=== PATIENT | male | born 1975 | race Caucasian/White ===

== ENCOUNTER 2017-04-19 21:49 | Emergency (ER) | payer SELFPAY ==
[2017-04-19 22:41] LABS: ABSOLUTE BASOPHILS # (AUTO) 0.1 10^3/uL (0.0-0.2); ABSOLUTE EOSINOPHILS # (AUTO) 0.2 10^3/uL (0.0-0.6); ABSOLUTE LYMPHOCYTES (AUTO) 2.8 10^3/uL (0.5-4.7); ABSOLUTE MONOCYTES (AUTO) 0.3 10^3/uL (0.1-1.4); ABSOLUTE NEUT (AUTO) 5.9 10^3/uL (1.7-8.2); BASOPHILS % (AUTO) 1.1 % (0-2); EOSINOPHILS % (AUTO) 1.8 % (0-6); HEMATOCRIT 44.6 % (37.9-51.0); HEMOGLOBIN 15.7 g/dL (13.5-17.0); LYMPHOCYTES % (AUTO) 30.2 % (13-45); MEAN CORPUSCULAR HEMOGLOBIN 32.2 pg (27.0-33.4); MEAN CORPUSCULAR HGB CONC 35.2 g/dL (32.0-36.0); MEAN CORPUSCULAR VOLUME 91 fl (80-97); MONOCYTES % (AUTO) 3.6 % (3-13); PLATELET COUNT 265 10^3/uL (150-450); RED BLOOD COUNT 4.87 10^6/uL (4.35-5.55); RED CELL DISTRIBUTION WIDTH 13.2 % (11.5-14.0); SEGMENTED NEUTROPHILS % (AUTO) 63.3 % (42-78); TOTAL CELLS COUNTED % (AUTO) 100 %; WHITE BLOOD COUNT 9.3 10^3/uL (4.0-10.5)
[2017-04-19] MEDS ORDERED: HALOPERIDOL LACTATE INJ 5 MG/1 ML VIAL ONE (22:46)
[2017-04-19] MEDS ORDERED: HALOPERIDOL LACTATE INJ 5 MG/1 ML VIAL IM ONE (22:46)
[2017-04-19] MEDS ORDERED: MIDAZOLAM 2 MG/2 ML INJ IM ONE (22:46)
[2017-04-19] MEDS ORDERED: MIDAZOLAM 2 MG/2 ML INJ ONE (22:47)
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
[2017-04-19 22:59] LABS: ALCOHOL 289 mg/dL (NONE DETECTED); ANION GAP 14 (5-19); BLOOD UREA NITROGEN 4 mg/dL (7-20); CALCIUM 9.5 mg/dL (8.4-10.2); CARBON DIOXIDE 23 mmol/L (22-30); CHLORIDE 99 mmol/L (98-107); GLUCOSE 100 mg/dL (75-110); POTASSIUM 3.9 mmol/L (3.6-5.0); SODIUM 136.3 mmol/L (137-145)
[2017-04-19 23:28] LABS: ALANINE AMINOTRANSFERASE 35 U/L (21-72); ALBUMIN 4.5 g/dL (3.5-5.0); ALKALINE PHOSPHATASE 69 U/L (38-126); ASPARTATE AMINO TRANSFERASE 22 U/L (17-59); TOTAL PROTEIN 7.1 g/dL (6.3-8.2)
[2017-04-19 23:29] LABS: ACETAMINOPHEN < 10 ug/mL (10-30); BILIRUBIN,TOTAL < 0.1 mg/dL (0.2-1.3)
[2017-04-19 23:30] LABS: SALICYLATE < 1.0 mg/dL (2.0-20.0)
[2017-04-20 00:07] LABS: APPEARANCE,URINE CLEAR; BILIRUBIN,URINE NEGATIVE (NEGATIVE); COLOR,URINE STRAW; GLUCOSE, URINE NEGATIVE (NEGATIVE); KETONES,URINE NEGATIVE (NEGATIVE); LEUKOCYTE ESTERASE,URINE NEGATIVE (NEGATIVE); NITRITE,URINE NEGATIVE (NEGATIVE); PROTEIN,URINE NEGATIVE (NEGATIVE); URINE SPECIFIC GRAVITY 1.004; UROBILINOGEN,URINE NEGATIVE mg/dL (<2.0)
--- NOTE | 2017-04-20 00:37 | RADIOLOGY REPORT (SQ) ---
EXAM DESCRIPTION: CT HEAD WITHOUT CLINICAL HISTORY: 41 years Male, new onset seizures COMPARISON: None. TECHNIQUE: No contrast. This exam was performed according to our departmental dose-optimization program, which includes automated exposure control, adjustment of the mA and/or kV according to patient size and/or use of iterative reconstruction technique. FINDINGS: No hemorrhage or infarct. No mass, mass effect, or midline shift. Brain and extra-axial structures appear intact. IMPRESSION: Normal CT of the head.
[2017-04-20 02:01] LABS: URINE AMPHETAMINES SCREEN NEGATIVE; URINE BARBITURATES SCREEN NEGATIVE; URINE BENZODIAZEPINES SCREEN NEGATIVE; URINE COCAINE SCREEN NEGATIVE; URINE MARIJUANA (THC) SCREEN NEGATIVE; URINE METHADONE SCREEN NEGATIVE; URINE PHENCYCLIDINE SCREEN NEGATIVE
--- NOTE | 2017-04-20 10:43 | ER Document Report ---
Doctor's Note Notes: 04/20/17 10:41 Chart and vital signs, labs reviewed. Labs significant for alcohol level of 289. Patient at this point feels like the alcohol is wearing off. He has no complaints but would like a cigarette. He accepts a nicotine patch at this point instead. Psychiatry is working on further evaluation/disposition. 04/20/17 11:[address] Aldrich have evaluated the patient. They do not feel he meets inpatient criteria. Patient at this point is elda for safety. They recommended Effexor 37.5 mg twice daily along with BuSpar 10 mg twice daily. He reports he already has an appointment tomorrow and psychiatry has verified outpatient follow-up.
[2017-04-20] MEDS ORDERED: NICOTINE 21 MG/24 HR PATCH.TD24 TD ONE (10:44)
[2017-04-20] MEDS ORDERED: VENLAFAXINE HCL 37.5 MG CAP.SR.24H PO ONE (11:20)
[2017-04-20] MEDS ORDERED: BUSPIRONE HCL 10 MG TABLET PO ONE (11:21)
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
[2017-04-20 16:39] VITALS: BP 108/70
== END 2017-04-20 16:45 | disposition home or self-care (01) ==
LOC: ER 21:49
DX: R45.851 Suicidal ideations (principal); R45.1 Restlessness and agitation; F10.99 Alcohol use, unspecified with unspecified alcohol-induced disorder; Y90.8 Blood alcohol level of 240 mg/100 ml or more; F43.21 Adjustment disorder with depressed mood; F43.10 Post-traumatic stress disorder, unspecified; F17.200 Nicotine dependence, unspecified, uncomplicated; R00.0 Tachycardia, unspecified
CPT/HCPCS: 99285; 96372; 36415; 80307 ×4; 85025; 80076; 80048; 81001; 70450; J2250; J3490; J1630

== ENCOUNTER 2018-03-14 02:56 | Emergency (ER) | payer SELFPAY ==
[2018-03-14] MEDS ORDERED: LIDOCAINE 1%/EPINEPHRINE INJ 20 ML VIAL INJ ONE (04:25)
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
[2018-03-14] MEDS ORDERED: HYDROCODONE/ACETAMINOPHEN 5-325 MG (6 TAB/ER DISP) PO PRN (05:54)
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
[2018-03-14 06:20] VITALS: BP 116/57
== END 2018-03-14 06:20 | disposition home or self-care (01) ==
LOC: ER 02:56
PROC: 0HQ3XZZ Repair Left Ear Skin, External Approach (ICD-10-PCS; principal; 2018-03-14)
PROC: 0HQ1XZZ Repair Face Skin, External Approach (ICD-10-PCS; 2018-03-14)
DX: S01.312A Laceration without foreign body of left ear, initial encounter (principal); S01.81XA Laceration without foreign body of other part of head, initial encounter; S01.412A Laceration without foreign body of left cheek and temporomandibular area, initial encounter; S00.83XA Contusion of other part of head, initial encounter; Y09 Assault by unspecified means; F17.200 Nicotine dependence, unspecified, uncomplicated
CPT/HCPCS: 99283; 70450; 70486; 72125; 12052; J3490

== ENCOUNTER 2019-09-14 06:30 | Emergency (ER) | payer SELFPAY ==
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
[2019-09-14] MEDS ORDERED: KETOROLAC TROMETHAMINE 60 MG/2 ML SDV IM ONE (09:29)
--- NOTE | 2019-09-14 09:29 | ER Document Report ---
HPI - HPI Time Seen by Provider: 09/14/19 09:22 Pain Level: 4 Notes: 44-year-old male presents to the emergency room for complaints of left lower back and left hip pain that woke him up out of sleep at 2 AM this morning. Patient states is been bothering him for the last week, but has been problematic "for a while". he thinks it is a form of tendinitis. Denies any form of trauma, no recent falls. 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 Patient states he does not "like going to doctors", has not had a checkup recently. States it is better with a hot shower and taking some ibuprofen and Tylenol. Denies fevers, chills, chest pain,palpitations, shortness of breath, dyspnea, nausea, vomiting, diarrhea, abdominal pain, hematuria, LH, dizziness, syncope, headaches, wheezing, ST, URI, neck pain, weakness, bowel or bladder dysfunction, saddle anesthesia, numbness or tingling in bilateral upper or lower extremities equally, muscle paralysis, weakness in bilateral upper or lower extremities equally or rash. MEDICATIONS: I agree with the patient medications as charted by the RN. ALLERGIES: I agree with the allergies as charted by the RN. PAST MEDICAL HISTORY/PAST SURGICAL HISTORY: Reviewed and agree as charted by RN. SOCIAL HISTORY: Reviewed and agree as charted by RN. FAMILY HISTORY: No significant familial comorbid conditions directly related to patient complaint EXAM: Reviewed vital signs as charted by RN. REVIEW OF SYSTEMS:reviewed vital signs by RN CONSTITUTIONAL : Denies fever, chills, or sweats. Denies recent illness. EENT: Denies eye, ear, throat, or mouth pain or symptoms. Denies nasal or sinus congestion or discharge. Denies throat, tongue, or mouth swelling or difficulty swallowing. CARDIOVASCULAR: Denies chest pain. Denies palpitations or racing or irregular heart beat. Denies ankle edema. RESPIRATORY: Denies cough, cold, or chest congestion. Denies shortness of breath, difficulty breathing, or wheezing. GASTROINTESTINAL: Denies abdominal pain or distention. Denies nausea, vomiting, or diarrhea. Denies blood in vomitus, stools, or per rectum. Denies black, tarry stools. Denies constipation. GENITOURINARY: Denies difficulty urinating, painful urination, burning, frequency, blood in urine, or discharge. MUSCULOSKELETAL: reports left lower back that radiates to his hip. Denies neck pain or stiffness. Denies joint pain or swelling. SKIN: Denies rash, lesions or sores. HEMATOLOGIC : Denies easy bruising or bleeding. LYMPHATIC: Denies swollen, enlarged glands. NEUROLOGICAL: Denies confusion or altered mental status. Denies passing out or loss of consciousness. Denies dizziness or lightheadedness. Denies headache. Denies weakness or paralysis or loss of use of either side. Denies problems with gait or speech. Denies sensory loss, numbness, or tingling. Denies seizures. PSYCHIATRIC: Denies anxiety or stress. Denies depression, suicidal ideation, or homicidal ideation. ALL OTHER SYSTEMS REVIEWED AND NEGATIVE. Dictation was performed using [employer] recognition software PHYSICAL EXAMINATION: GENERAL: Well-appearing, well-nourished and in no acute distress. HEAD: Atraumatic, normocephalic. EYES: Pupils equal round and reactive to light, extraocular movements intact, sclera anicteric, conjunctiva are normal. ENT: Nares patent, oropharynx clear without exudates. Moist mucous membranes. NECK: Normal range of motion, supple without lymphadenopathy LUNGS: Breath sounds clear to auscultation bilaterally and equal. No wheezes rales or rhonchi. HEART: Regular rate and rhythm without murmurs ABDOMEN: Soft, nontender, nondistended abdomen. No guarding, no rebound. No masses appreciated. No inguinal hernias palpated bilaterally. Musculoskeletal: Normal range of motion, no pitting or edema. No cyanosis.Pain with flexion and extension at 30 degrees on left, positive straight leg test on left. Noted pain on left hip join on palpation. pain with flexion of left hip, no pain with extension, abduction, abduction. right hip examination normal. DTR +2 in BLE equally. Strength 5 out of 5 both distally and proximally to bilateral lower extremities normal motor and sensory function in BLE equally. Distal pulses + 2 BLE equally. Noted left paraspinal tenderness near L1 and L4. Strength 5 out of 5 in bilateral lower extremities equally. no spinal tenderness. No CVA tenderness bilaterally. Femoral pulses + 2 bilaterally and equally. No abrasions, scars, lacerations, ecchymosis of any recent trauma. normal gait. NEUROLOGICAL: Cranial nerves grossly intact. Normal speech, normal gait. Normal sensory, motor exams PSYCH: Normal mood, normal affect. SKIN: Warm, Dry, normal turgor, no rashes or lesions noted. - REPRODUCTIVE Reproductive: DENIES: : Past Medical History - General Information source: Patient - Social History Smoking Status: Current Every Day Smoker Frequency of alcohol use: Heavy Drug Abuse: None Family History: Reviewed & Not Pertinent Patient has homicidal ideation: No Renal/ Medical History: Denies: Hx Peritoneal Dialysis Psychiatric Medical History: Reports: Hx Depression - Immunizations Immunizations up to date: Yes Hx Diphtheria, Pertussis, Tetanus Vaccination: Yes Vertical Provider Document - CONSTITUTIONAL Agree With Documented VS: Yes Exam Limitations: No Limitations General Appearance: WD/WN - INFECTION CONTROL TRAVEL OUTSIDE OF THE [place] IN LAST 30 DAYS: No Course - Re-evaluation Re-evalutation: 09/14/19 09:35 Afebrile vital stable no distress. Nurses notes reviewed. Left hip x-ray negative for any acute fractures, dislocation, or free air. Patient given 60 mg IM of Toradol with full relief. Discussed following up with relationship specialist and primary care provider. Apply heat 20 minutes on 20 minutes off several times a day. I have considered osteomyelitis, spinal epidural abscess, fracture, disc herniation, cord compression, cancer, AAA, retroperitoneal bleed, spinal epidural hematoma, and see no evidence to continue evaluation for these pathologies. Afebrile vital stable no distress. Nurse's notes reviewed. Pain is otherwise unremarkable for any focal neurological deficits. Patient given Toradol and Lidoderm patches. No significant tachycardia tachypnea or hypoxia. Nontoxic-appearing is tolerating p.o. without difficulty. No signs of infection. No other red flag symptoms noted. Urinalysis, CBC and CMP unremarkable. Low suspicion for meningitis fracture, expanding ruptured AAA, cauda equina syndrome, epidural mass/lesion, herniated disc causing severe spinal stenosis, systemic infection at this time. Patient is awaiting incision and change ofanemia she needs monitoring symptoms closely for any acute injuries. I will send her home with a prescription for lidocaine patches, Pt can also take kucc-[id number]-[id number] ibuprofen and Tylenol as needed for pain. Conservative measures otherwise for symptoms. Recheck with her your PCM in 3 to 5 days. Consider consult with orthopedic/ neurosurgeon. Return to the ED with any worsening concerning symptoms otherwise review discharge. Patient is in agreement with plan of care and agree with plan of care. 09/14/19 19:44 - Vital Signs Vital signs: Temp Pulse Resp BP Pulse Ox 97.5 F 86 16 146/83 H 100 09/14/19 06:38 09/14/19 06:36 09/14/19 06:36 09/14/19 06:36 09/14/19 06:36 Discharge - Discharge Clinical Impression: Lower back pain, Left hip pain Condition: Stable Disposition: HOME, SELF-CARE Instructions: Low Back Pain ([facility]), Muscle Relaxers ([facility]), Stretching Exercises for the Back ([facility]) Additional Instructions: Your x-rays today were negative of your hip and of your lower back for any acute fracture, dislocation, bone lesion. You likely have a strain of your lower back which is radiating to your hip. Please take muscle relaxers, do not drive, drink or operate machinery while taking this medication. Take naproxen as needed for pain. Apply heat 20 minutes on 20 minutes off several times a day. Please follow-up with relationship specialist as well as primary care provider. If her symptoms become worse such as worsening pain, numbness or tingling down your extremities, issues using the bathroom such as having a bowel movement or urination, numbness or tingling to your pelvic area, fevers, vomiting, chest pain or shortness of breath return to the emergency room immediately. Return immediately for any new or worsening symptoms. Follow up with primary care provider, call tomorrow to make followup appointment. Prescriptions: Naproxen 500 mg PO BID #10 tablet Methocarbamol [Robaxin 500 mg Tablet] 500 mg PO QID PRN #15 tablet PRN Reason: Referrals: HUMAIRA PADILLA MD [ACTIVE STAFF] - Follow up as needed SILVANO JEWELL MD [ACTIVE STAFF] - Follow up as needed
--- NOTE | 2019-09-14 10:14 | RADIOLOGY REPORT (SQ) ---
EXAM DESCRIPTION: L SPINE WHOLE IMAGES COMPLETED DATE/TIME: 09/14/2019 9:54 am REASON FOR STUDY: Left lower back pain, radiates to hip COMPARISON: None. NUMBER OF VIEWS: Five views including obliques. TECHNIQUE: AP, lateral, oblique, and sacral radiographic images acquired of the lumbar spine. LIMITATIONS: None. FINDINGS: MINERALIZATION: Normal. SEGMENTATION: Normal. No transitional anatomy. ALIGNMENT: Normal. VERTEBRAE: Maintained height. No fracture or worrisome bone lesion. DISCS: Mild loss of L4/5 intervertebral disc height. There may intervertebral disc heights appear to be largely preserved. POSTERIOR ELEMENTS: Pedicles and facets are intact. No pars defect or posterior arch defects. HARDWARE: None in the spine. PARASPINAL SOFT TISSUES: A series calcific densities project to the left of the L2 and L3 vertebral b odies, along the expected course of the left ureter. PELVIS: Intact as visualized. No fractures or worrisome bone lesions. SI joints intact. OTHER: No other significant finding. IMPRESSION: No evidence of acute osseous injury or significant degenerative change. Calcific densit ies projecting to the left of the L2 and L3 vertebral bodies are nonspecific but given left-sided priscilla n may represent urolithiasis. TECHNICAL DOCUMENTATION: JOB ID: [id number] 2010 [employer]- All Rights Reserved Reading location - IP/workstation name: [email or web address]
[2019-09-14 10:30] VITALS: BP 140/99
== END 2019-09-14 10:31 | disposition home or self-care (01) ==
LOC: ER 06:30
DX: M54.5 Low back pain (principal); M25.552 Pain in left hip; F32.9 Major depressive disorder, single episode, unspecified; F17.200 Nicotine dependence, unspecified, uncomplicated; Z79.899 Other long term (current) drug therapy
CPT/HCPCS: 99283; 96372; 73502; 72110; J1885

== ENCOUNTER 2019-11-30 16:55 | Inpatient (IN) | payer SELFPAY ==
--- NOTE | 2019-11-30 18:06 | ER Document Report ---
ED Medical Screen (RME) - General Chief Complaint: Headache >24 hrs old Stated Complaint: HEADACHE Time Seen by Provider: 11/30/19 17:57 Mode of Arrival: Wheelchair Information source: Patient Notes: HPI; 44-year-old male presents to the emergency room complaining of generalized headache for the past 2 weeks. Also complains of dizziness worse with movement. Also complaining of chest pain for the past 2 days. Increases with deep breath. States it is midsternal, describes it as a sharp stabbing pain. Denies any nausea, vomiting, no diaphoresis. states he has been a bit more leth argic. PE: Alert and oriented x3. Mild distress noted. Lungs: Clear to auscultation without rales, rhonchi, wheezes. Heart: Regular rate rhythm without murmurs, rubs, gallops. I have greeted and performed a rapid initial assessment of this patient. A comprehensive ED assessment and evaluation of the patient, analysis of test results and completion of the medical decision making process will be conducted by additional ED providers. I have specifically instructed the patient or family members with the patient to immediately return to any nursing staff should anything change in the patient's condition or with their chief complaint. TRAVEL OUTSIDE OF THE [place] IN LAST 30 DAYS: No - Related Data Allergies/Adverse Reactions: No Known Allergies Allergy (Verified 11/30/19 17:49) Past Medical History - Social History Chew tobacco use (# tins/day): No Frequency of alcohol use: Social Drug Abuse: None Renal/ Medical History: Denies: Hx Peritoneal Dialysis Psychiatric Medical History: Reports: Hx Depression - Immunizations Immunizations up to date: Yes Hx Diphtheria, Pertussis, Tetanus Vaccination: Yes Physical Exam - Vital signs Vitals: Temp Pulse Resp BP Pulse Ox 97.5 F 85 20 140/90 H 98 11/30/19 17:00 11/30/19 17:00 11/30/19 17:00 11/30/19 17:00 11/30/19 17:00 Course - Vital Signs Vital signs: Temp Pulse Resp BP Pulse Ox 97.5 F 85 20 140/90 H 98 11/30/19 17:00 11/30/19 17:00 11/30/19 17:00 11/30/19 17:00 11/30/19 17:00
--- NOTE | 2019-11-30 18:23 | RADIOLOGY REPORT (SQ) ---
EXAM DESCRIPTION: CHEST 2 VIEWS IMAGES COMPLETED DATE/TIME: 11/30/2019 6:14 pm REASON FOR STUDY: chest pain COMPARISON: None. EXAM PARAMETERS: NUMBER OF VIEWS: two views TECHNIQUE: Digital Frontal and Lateral radiographic views of the chest acquired. RADIATION DOSE: NA LIMITATIONS: none FINDINGS: LUNGS AND PLEURA: No opacities, masses or pneumothorax. No pleural effusion. MEDIASTINUM AND HILAR STRUCTURES: No masses or contour abnormalities. HEART AND VASCULAR STRUCTURES: Heart normal size. No evidence for failure. BONES: No acute findings. HARDWARE: None in the chest. OTHER: No other significant finding. IMPRESSION: NO ACUTE RADIOGRAPHIC FINDING IN THE CHEST. TECHNICAL DOCUMENTATION: JOB ID: [id number] 2010 [email or web address]- All Rights Reserved Reading location - IP/workstation name: [email or web address]
--- NOTE | 2019-11-30 18:24 | EKG REPORT ---
SEVERITY:- NORMAL ECG - SINUS RHYTHM : Confirmed by: Sebastian Claire MD 30-Nov-2019 18:23:41
[2019-11-30 18:48] LABS: ABSOLUTE BASOPHILS # (AUTO) 0.1 10^3/uL (0.0-0.2); ABSOLUTE EOSINOPHILS # (AUTO) 0.3 10^3/uL (0.0-0.6); ABSOLUTE MONOCYTES (AUTO) 0.4 10^3/uL (0.1-1.4); ABSOLUTE NEUT (AUTO) 4.1 10^3/uL (1.7-8.2); BASOPHILS % (AUTO) 1.2 % (0-2); EOSINOPHILS % (AUTO) 3.7 % (0-6); HEMATOCRIT 44.9 % (37.9-51.0); HEMOGLOBIN 15.9 g/dL (13.5-17.0); MEAN CORPUSCULAR HEMOGLOBIN 32.8 pg (27.0-33.4); MEAN CORPUSCULAR HGB CONC 35.4 g/dL (32.0-36.0); MEAN CORPUSCULAR VOLUME 93 fl (80-97); MONOCYTES % (AUTO) 5.1 % (3-13); PLATELET COUNT 273 10^3/uL (150-450); RED BLOOD COUNT 4.85 10^6/uL (4.35-5.55); RED CELL DISTRIBUTION WIDTH 12.9 % (11.5-14.0); TOTAL CELLS COUNTED % (AUTO) 100 %
[2019-11-30 18:52] LABS: APPEARANCE,URINE CLEAR; BILIRUBIN,URINE NEGATIVE (NEGATIVE); COLOR,URINE STRAW; GLUCOSE, URINE NEGATIVE (NEGATIVE); KETONES,URINE NEGATIVE (NEGATIVE); LEUKOCYTE ESTERASE,URINE NEGATIVE (NEGATIVE); NITRITE,URINE NEGATIVE (NEGATIVE); PROTEIN,URINE NEGATIVE (NEGATIVE); URINE SPECIFIC GRAVITY 1.003; UROBILINOGEN,URINE NEGATIVE mg/dL (<2.0)
[2019-11-30 18:56] LABS: INTERNATIONAL RATION (INR) 0.87
--- NOTE | 2019-11-30 19:02 | RADIOLOGY REPORT (SQ) ---
EXAM DESCRIPTION: CT HEAD WITHOUT IMAGES COMPLETED DATE/TIME: 11/30/2019 5:29 pm REASON FOR STUDY: headache COMPARISON: None. TECHNIQUE: Axial images acquired through the brain without intravenous contrast. Images reviewed wi th bone, brain and subdural windows. Additional sagittal and coronal reconstructions were generated. Images stored on PACS. All CT scanners at this facility use dose modulation, iterative reconstruction, and/or weight based d osing when appropriate to reduce radiation dose to as low as reasonably achievable (ALARA). [facility]: Dose Right [facility]: CareDose [facility]: Dose Right [facility]: Teradose 4D [facility]: [place] RADIATION DOSE: CT Rad equipment meets quality standard of care and radiation dose reduction techniq ues were employed. CTDIvol: 53.2 mGy. DLP: 1044 mGy-cm. mGy. LIMITATIONS: None. FINDINGS: VENTRICLES: Normal size and contour. CEREBRUM: No masses. No hemorrhage. No midline shift. No evidence for acute infarction. Normal gra y/white matter differentiation. No areas of low density in the white matter. CEREBELLUM: No masses. No hemorrhage. No alteration of density. No evidence for acute infarction. EXTRAAXIAL SPACES: No fluid collections. No masses. ORBITS AND GLOBE: No intra- or extraconal masses. Normal contour of globe without masses. CALVARIUM: No fracture. PARANASAL SINUSES: No fluid or mucosal thickening. SOFT TISSUES: No mass or hematoma. OTHER: No other significant finding. IMPRESSION: NO ACUTE INTRACRANIAL IMAGING FINDINGS. EVIDENCE OF ACUTE STROKE: NO. COMMENT: Quality ID # [id number]: Final reports with documentation of one or more dose reduction techniques (e.g., Automated exposure control, adjustment of the mA and/or kV according to patient size, use of iterative reconstruction technique) TECHNICAL DOCUMENTATION: JOB ID: [id number] [employer]- All Rights Reserved Reading location - IP/workstation name: [email or web address]
[2019-11-30 19:07] LABS: ALBUMIN 4.8 g/dL (3.5-5.0); ALKALINE PHOSPHATASE 85 U/L (38-126); ANION GAP 9 (5-19); ASPARTATE AMINO TRANSFERASE 21 U/L (17-59); BILIRUBIN,DIRECT 0.3 mg/dL (0.0-0.4); BILIRUBIN,TOTAL 0.5 mg/dL (0.2-1.3); BLOOD UREA NITROGEN 8 mg/dL (7-20); CALCIUM 9.4 mg/dL (8.4-10.2); CARBON DIOXIDE 27 mmol/L (22-30); CHLORIDE 99 mmol/L (98-107); CREATINE KINASE 56 U/L (55-170); GLUCOSE 88 mg/dL (75-110); POTASSIUM 4.3 mmol/L (3.6-5.0); TOTAL PROTEIN 7.8 g/dL (6.3-8.2)
[2019-11-30 19:09] LABS: URINE AMPHETAMINES SCREEN NEGATIVE; URINE BARBITURATES SCREEN NEGATIVE; URINE BENZODIAZEPINES SCREEN NEGATIVE; URINE COCAINE SCREEN NEGATIVE; URINE MARIJUANA (THC) SCREEN NEGATIVE; URINE METHADONE SCREEN NEGATIVE; URINE PHENCYCLIDINE SCREEN NEGATIVE
[2019-11-30 19:17] LABS: CREATINE KINASE MB 0.67 ng/mL (<4.55)
[2019-11-30 19:26] LABS: TROPONIN I 0.066 ng/mL
--- NOTE | 2019-11-30 19:28 | ER Document Report ---
ED General - General Chief Complaint: Headache >24 hrs old Stated Complaint: HEADACHE Time Seen by Provider: 11/30/19 17:57 Mode of Arrival: Wheelchair TRAVEL OUTSIDE OF THE [place] IN LAST 30 DAYS: No - HPI Notes: 44-year-old male presents with headache and chest pain. Patient states he is feeling "like a Friday". He states that he has been having generalized headaches for the past couple of weeks. He has not tried any medication at home. Pain is intermittent throughout the day. He additionally states that he woke up at 3 AM this morning with chest pain. He describes it as his left lung is hurting. Pain is worse when taking a deep breath. It is sharp and stabbing. It has been constant since its onset. Pain did not change with exertion. He was able to go to work today despite the chest pain. No nausea, vomiting or diaphoresis. He reports chronic cough and shortness of breath secondary to COPD, current every day smoker. Denies fever or any known COVID contacts. Denies any previous cardiac history. States that he has a family history of heart attack and stroke. He has not been diagnosed with hypertension, though he states he suspects he has it, he has been taking his blood pressure at home and has had readings in the 180s. He takes prazosin for sleep, prescribed by the [place]. - Related Data Allergies/Adverse Reactions: No Known Allergies Allergy (Verified 11/30/19 17:49) Past Medical History - General Information source: Patient - Social History Smoking Status: Current Every Day Smoker Chew tobacco use (# tins/day): No Frequency of alcohol use: Social Drug Abuse: None Family History: CAD Patient has homicidal ideation: No Renal/ Medical History: Denies: Hx Peritoneal Dialysis Psychiatric Medical History: Reports: Hx Depression - Immunizations Immunizations up to date: Yes Hx Diphtheria, Pertussis, Tetanus Vaccination: Yes Review of Systems - Review of Systems Constitutional: denies: Chills, Fever EENT: No symptoms reported Cardiovascular: Chest pain Respiratory: Cough, Hurts to breathe, Short of breath Gastrointestinal: denies: Abdominal pain, Nausea, Vomiting Genitourinary: No symptoms reported Male Genitourinary: No symptoms reported Musculoskeletal: No symptoms reported Skin: No symptoms reported Hematologic/Lymphatic: No symptoms reported Neurological/Psychological: Headaches Physical Exam - Vital signs Vitals: Temp Pulse Resp BP Pulse Ox 97.5 F 85 20 140/90 H 98 11/30/19 17:00 11/30/19 17:00 11/30/19 17:00 11/30/19 17:00 11/30/19 17:00 - General General appearance: Appears well, Alert In distress: None - HEENT Head: Normocephalic, Atraumatic Extraocular movements intact: Yes Pupils: PERRL - Respiratory Chest status: Tender - Right side Breath sounds: Normal - Cardiovascular Rhythm: Regular Heart sounds: Normal auscultation Normal capillary refill: Yes - Abdominal Tenderness: Nontender - Extremities General lower extremity: No: Edema - Neurological Neuro grossly intact: Yes Cognition: Normal Orientation: AAOx4 Motor strength normal: LUE, RUE, LLE, RLE - Psychological Associated symptoms: Normal affect - Skin Skin Temperature: Warm Course - Re-evaluation Re-evalutation: 11/30/19 19:55 44-year-old male with left-sided chest pain. There is a pleuritic nature to it, no exertional symptoms, atypical sounding in nature. However does have a strong family history of cardiac disease. He has risk factors including smoking and likely hypertension. He had labs drawn through the triage process, troponin has returned elevated at 0.066. His EKG does not have any ST elevation. Concern for potential NSTEMI, will trend troponin. However given the pleuritic nature, will obtain CTA to rule out PE as an additional cause. He does not appear to be volume overloaded, less likely CHF but will check BNP. Trial Toradol for headache, he is neurologically intact. He had a head CT through triage as well which was negative for acute process. Aspirin ordered. 11/30/19 21:37 Repeat troponin, 0.069, essentially the same as previous. CTA is negative for PE. I wanted to update patient, he currently is pain-free. Will call for admission. 11/30/19 21:51 Patient's creatinine will tolerate Lovenox, 1 khloe per keg ordered. Patient was discussed with Dr. Ludwig, he will be admitted under the hospitalist service. - Vital Signs Vital signs: Temp Pulse Resp BP Pulse Ox 97.5 F 85 9 L 128/94 H 97 11/30/19 17:00 11/30/19 17:00 11/30/19 21:00 11/30/19 20:00 11/30/19 21:00 - Laboratory Result Diagrams: 11/30/19 18:35 11/30/19 18:35 Laboratory results interpreted by me: 11/30/19 18:35 Sodium 134.7 L - Diagnostic Test Radiology reviewed: Image reviewed, Reports reviewed Discharge - Discharge Clinical Impression: NSTEMI (non-ST elevated myocardial infarction) Disposition: ADMITTED INPATIENT Admitting Provider: Vani (Hospitalist)
[2019-11-30] MEDS ORDERED: ASPIRIN 81 MG TABLET, CHEWABLE PO ONE (19:47)
[2019-11-30] MEDS ORDERED: KETOROLAC TROMETHAMINE INJ/PF 30 MG/1 ML SDV IV ONE (19:47)
--- NOTE | 2019-11-30 20:43 | RADIOLOGY REPORT (SQ) ---
EXAM DESCRIPTION: CT pulmonary angiogram of the chest. CLINICAL HISTORY: 44 years Male; CP, SOB, eval PE TECHNIQUE: CT angiogram of the chest using intravenous contrast.. MIP reconstructions were performed. All CT scans at this facility use dose modulation, iterative reconstruction, and/or weight based dosing when appropriate to reduce radiation dose to as low as reasonably achievable. COMPARISON: CT scan of the chest with contrast 03/15/2015. FINDINGS: Chest: Vascular: Exam is of diagnostic quality. There is no evidence of pulmonary embolization bilaterally. Thoracic aorta is unchanged. There is mild prominence of the aorta at the aortic valve. The appearance is stable. Lungs: Lungs are hyperinflated and there is paraseptal and centrilobular emphysema predominantly in the mid and upper lung zones. No focal consolidation. No pneumothorax or pleural effusion. The appearance is stable. No pulmonary nodules or masses. Mediastinum: Heart size is small. No pericardial abnormality. Small nonspecific right hilar and subcarinal lymph nodes are present. These do not meet size criteria for pathologic process. Thyroid gland appears normal. Bones and soft tissues: Unremarkable Upper Abdomen: Visualized portion of the upper abdomen is unremarkable. IMPRESSION: 1. No pulmonary embolism. 2. COPD with mild paraseptal and centrilobular emphysema. 3. No acute process in the chest. No pneumonia or edema. No pulmonary nodules or masses.
[2019-11-30 21:30] LABS: TROPONIN I 0.069 ng/mL
[2019-11-30] MEDS ORDERED: ENOXAPARIN SODIUM INJ 100 MG/1 ML DISP.SYRIN SUBCUT ONE (21:50)
[2019-11-30] MEDS ORDERED: ACETAMINOPHEN 325 MG TABLET PO PRN (21:54)
[2019-11-30] MEDS ORDERED: MAG HYDROX/AL HYDROX/SIMETH SUSP 30 ML UDCUP PO PRN (21:54)
[2019-11-30] MEDS ORDERED: ONDANSETRON HCL INJ/PF 4 MG/2 ML SDV IV PRN (21:54)
[2019-11-30] MEDS ORDERED: NITROGLYCERIN 0.4 MG/TAB 25 TAB/BOTTLE SL PRN (21:54)
[2019-11-30] MEDS ORDERED: LEVALBUTEROL HCL NEB 0.63 MG/3 ML AMPUL NEB PRN (23:23)
[2019-11-30] MEDS ORDERED: MELATONIN 5 MG TABLET PO PRN (23:23)
[2019-11-30] MEDS ORDERED: MORPHINE SULFATE 10 MG/ML INJ IV PRN (23:23)
[2019-11-30] MEDS ORDERED: MAGNESIUM HYDROXIDE SUSP 30 ML UDCUP PO PRN (23:23)
[2019-11-30] MEDS ORDERED: GUAIFENESIN SYRP 200 MG/10 ML UDC PO PRN (23:23)
[2019-11-30] MEDS ORDERED: LORAZEPAM INJ 2 MG/1 ML VIAL IV PRN (23:23)
--- NOTE | 2019-12-01 01:01 | PDOC H&P ---
History of Present Illness Admission Date/PCP: 11/30/19 22:07 No local PCP Patient complains of: Chest pain History of Present Illness: JENNIFER QUINONES is a 44 year old male who presented to the emergency room with acute chest pain. He admits the sudden onset of severe sharp stabbing pain in his left anterior chest at 3 AM this morning. The chest pain does not radiate, but is worsened by taking a deep breath. His chest pain is associated with generalized headaches that he has experienced intermittently for the last 2 weeks. He denies other associated or accompanying signs and symptoms. He denies prior similar episodes. He has not identified any additional aggravating or ameliorating factors for his chest pain. In the emergency room he was found to have an intermediate elevation of his troponin I with normal CPK and CK-MB levels. His troponin I also did not significantly increase or decrease over 2 serial tests. The patient's chest pain was treated with Toradol and completely relieved. Patient was subsequently admitted to hospital for further evaluation and treatment. Past Medical History Cardiac Medical History: Denies: Atrial Fibrillation, Coronary Artery Disease, DVT, Myocardial Infarction, Hyperlipidema, Hypertension, Pulmonary Embolism Pulmonary Medical History: Reports: Chronic Obstructive Pulmonary Disease (COPD) Denies: Asthma EENT Medical History: Denies: Cataracts, Ears - Hearing aids Neurological Medical History: Reports: Other - "Nervous disorder"-Tic? Denies: Hemorrhagic CVA, Ischemic CVA, Seizures Endocrine Medical History: Denies: Diabetes Mellitus Type 1, Hyperthyroidism, Hypothyroidism, Obesity Renal/ Medical History: Denies: Chronic Kidney Disease, Nephrolithiasis Malignancy Medical History: Reports: None GI Medical History: Denies: Cirrhosis, Crohn's Disease, Hepatitis, Peptic Ulcer Disease, Ulcerative Colitis Musculoskeltal Medical History: Denies: Arthritis, Gout Skin Medical History: Denies: Eczema, Psoriasis Psychiatric Medical History: Reports: Post Traumatic Stress Disorder, Tobacco Dependency Denies: Alcohol Dependency, Substance Abuse Traumatic Medical History: Reports: None Hematology: Denies: Anemia, Bleeding Tendencies Infectious Medical History: Reports: None Past Surgical History Past Surgical History: Reports: Other - Dental surgeries Social History Information Source: Patient Lives with: Spouse/Significant other Smoking Status: Current Every Day Smoker Cigarettes Packs Per Day: 2 Electronic Cigarette use?: No Frequency of Alcohol Use: Social - Approximately 6 beers per day Hx Recreational Drug Use: No Drugs: None Hx Prescription Drug Abuse: No - Advance Directive Resuscitation Status: Full Code Surrogate healthcare decision maker:: Aidansavannah Kowalski Family History Family History: CAD, CVA, Hypertension, Malignancy, Other - Aneurysms, ALS Parental Family History Reviewed: Yes Children Family History Reviewed: No Sibling(s) Family History Reviewed.: Yes Medication/Allergy Home Medications: Buspirone HCl [Buspar 10 mg Tablet] 10 mg PO BID #10 tab 04/20/17 Disulfiram [Antabuse 250 mg Tablet] 250 mg PO DAILY 04/20/17 Fluoxetine HCl [Prozac] 20 mg PO DAILY 04/20/17 Prazosin HCl 2 mg PO DAILY 04/20/17 Trazodone HCl 50 mg PO DAILY 04/20/17 Venlafaxine HCl [Effexor] 37.5 mg PO BID #10 tablet 04/20/17 Methocarbamol [Robaxin 500 mg Tablet] 500 mg PO QID PRN #15 tablet 09/14/19 Naproxen 500 mg PO BID #10 tablet 09/14/19 Allergies/Adverse Reactions: No Known Allergies Allergy (Verified 11/30/19 17:49) Review of Systems Constitutional: PRESENT: as per HPI, headache(s). ABSENT: chills, fever(s) Eyes: ABSENT: visual disturbances, other - Eye pain Ears: ABSENT: hearing changes, other - Ear pain Nose, Mouth, and Throat: PRESENT: as per HPI, headache(s). ABSENT: sore throat Cardiovascular: PRESENT: as per HPI, chest pain. ABSENT: dyspnea on exertion, palpitations Respiratory: PRESENT: dyspnea - Chronic due to COPD. ABSENT: cough Gastrointestinal: ABSENT: abdominal pain, constipation, diarrhea, nausea, vomiting Genitourinary: ABSENT: dysuria, hematuria Musculoskeletal: ABSENT: back pain, joint swelling Integumentary: ABSENT: pruritus, rash Neurological: ABSENT: confusion, convulsions, focal weakness, memory loss, syncope Psychiatric: ABSENT: anxiety, depression Endocrine: ABSENT: cold intolerance, heat intolerance Hematologic/Lymphatic: ABSENT: easy bleeding, easy bruising Allergic/Immunologic: ABSENT: seasonal rhinorrhea Physical Exam Vital Signs: Temp Pulse Resp BP Pulse Ox 97.5 F 85 9 L 128/94 H 97 11/30/19 17:00 11/30/19 17:00 11/30/19 21:00 11/30/19 20:00 11/30/19 21:00 Intake & Output 11/28/19 11/29/19 11/30/19 23:59 23:59 23:59 Weight 88.451 kg General appearance: PRESENT: no acute distress, cooperative, well-developed Head exam: PRESENT: atraumatic, normocephalic Eye exam: PRESENT: conjunctiva pink. ABSENT: conjunctival injection, scleral icterus Ear exam: PRESENT: normal external ear exam. ABSENT: bleeding, drainage Mouth exam: PRESENT: dry mucosa, neck supple Neck exam: ABSENT: thyromegaly, tracheal deviation Respiratory exam: PRESENT: clear to auscultation tigre, symmetrical, unlabored Cardiovascular exam: PRESENT: RRR. ABSENT: clicks, gallop, rubs Pulses: PRESENT: normal radial pulses, normal dorsalis pedis pul Vascular exam: PRESENT: normal capillary refill. ABSENT: pallor GI/Abdominal exam: PRESENT: normal bowel sounds, soft Rectal exam: PRESENT: deferred Extremities exam: ABSENT: joint swelling, pedal edema Musculoskeletal exam: ABSENT: deformity, dislocation Neurological exam: PRESENT: alert, oriented to person, oriented to place, oriented to time, oriented to situation, CN II-XII grossly intact. ABSENT: motor sensory deficit Psychiatric exam: PRESENT: appropriate affect, normal mood Skin exam: PRESENT: dry, intact, warm. ABSENT: jaundice, rash, urticaria Results Laboratory Results: 11/30/19 18:35 11/30/19 18:35 11/30/19 11/30/19 11/30/19 18:27 18:35 18:35 WBC 8.0 RBC 4.85 Hgb 15.9 Hct 44.9 MCV 93 MCH 32.8 MCHC 35.4 RDW 12.9 Plt Count 273 Seg Neutrophils % 52.0 Sodium 134.7 L Potassium 4.3 Chloride 99 Carbon Dioxide 27 Anion Gap 9 BUN 8 Creatinine 1.08 Est GFR ( Amer) > 60 Glucose 88 Calcium 9.4 Total Bilirubin 0.5 AST 21 Alkaline Phosphatase 85 Total Protein 7.8 Albumin 4.8 Urine Color STRAW Urine Appearance CLEAR Urine pH 7.0 Ur Specific [place] 1.003 Urine Protein NEGATIVE Urine Glucose (UA) NEGATIVE Urine Ketones NEGATIVE Urine Blood NEGATIVE Urine Nitrite NEGATIVE Ur Leukocyte Esterase NEGATIVE Urine WBC (Auto) 1 11/30/19 11/30/19 11/30/19 18:35 18:35 18:35 Creatine Kinase 56 CK-MB (CK-2) 0.67 Troponin I 0.066 Cancelled NT-Pro-B Natriuret Pep 11/30/19 20:43 Creatine Kinase CK-MB (CK-2) Troponin I 0.069 NT-Pro-B Natriuret Pep 29 Impressions: Chest X-Ray 11/30/19 18:02 IMPRESSION: NO ACUTE RADIOGRAPHIC FINDING IN THE CHEST. Head CT 11/30/19 18:03 IMPRESSION: NO ACUTE INTRACRANIAL IMAGING FINDINGS. EVIDENCE OF ACUTE STROKE: NO. Chest/Abdomen CTA 11/30/19 19:46 IMPRESSION: 1. No pulmonary embolism. 2. COPD with mild paraseptal and centrilobular emphysema. 3. No acute process in the chest. No pneumonia or edema. No pulmonary nodules or masses. Assessment and Plan - Diagnosis (1) Elevated troponin I level Is this a current diagnosis for this admission?: Yes (2) Chest pain Qualifiers: Chest pain type: chest pain on breathing Qualified Code(s): R07.1 - Chest pain on breathing; R07.81 - Pleurodynia Is this a current diagnosis for this admission?: Yes (3) Chronic obstructive pulmonary disease Qualifiers: COPD type: unspecified COPD Qualified Code(s): J44.9 - Chronic obstructive pulmonary disease, unspecified Is this a current diagnosis for this admission?: Yes (4) Tobacco use disorder, continuous Is this a current diagnosis for this admission?: Yes (5) Posttraumatic stress disorder Is this a current diagnosis for this admission?: Yes - Plan Summary Summary: Patient will be admitted to the [facility] where he will be treated on the NSTEMI/ACS protocol. He will receive routine supportive and symptomatic cares. Serial cardiac enzymes will be obtained. A cardiology consultation will be obtained with Dr. Andujar. Patient will receive Toradol 30 mg IV every 6 hours for pain control with morphine sulfate 2 to 4 mg IV every 2 hours as needed for persistent chest pain. He will receive Ativan 1 mg IV every 4 hours as needed for anxiety or restlessness. He will be started on Plavix and aspirin per the ACS protocol and an appropriate cardiac diet and routine laboratory evaluations will be obtained. Smoking cessation is advised and counseled briefly at the bedside. A nicotine replacement patch is available for the patient's use if de sired. Patient's routine home medications will be restarted, as appropriate, when his medication list has been verified and reconciled. - Time Time Spent with patient: 15-24 minutes Smoking Cessation Education: 3 to 10 minutes Medications reviewed and adjusted accordingly: Yes Anticipated Discharge Disposition: Home, Self Care Anticipated Discharge Timeframe: within 48 hours - Inpatient Certification Based on my medical assessment, after consideration of the patient's comorbidities, presenting symptoms, or acuity I expect that the services needed warrant INPATIENT care.: Yes I certify that my determination is in accordance with my understanding of Medicare's requirements for reasonable and necessary INPATIENT services [42 CFR 412.3e].: Yes Medical Necessity: Need Close Monitoring Due to Risk of Patient Decompensation, Need For Continuous Telemetry Monitoring, Need for Pain Control, Risk of Diagnosis Which Will Require Inpatient Eval/Care/Monitoring
[2019-12-01] MEDS ORDERED: MORPHINE SULFATE 10 MG/ML INJ IV PRN ×3 (01:42)
[2019-12-01] MEDS: NICOTINE 21 MG/24 HR PATCH.TD24 TD PRN ×2 (03:00→15:39)
[2019-12-01] MEDS: KETOROLAC TROMETHAMINE INJ/PF 30 MG/1 ML SDV IV SCH ×4 (03:01→22:15)
[2019-12-01] MEDS: FAMOTIDINE 20 MG TABLET PO SCH ×3 (03:02→22:15)
[2019-12-01 04:11] LABS: HEMATOCRIT 40.7 % (37.9-51.0); HEMOGLOBIN 14.6 g/dL (13.5-17.0); MEAN CORPUSCULAR HEMOGLOBIN 33.3 pg (27.0-33.4); MEAN CORPUSCULAR HGB CONC 35.9 g/dL (32.0-36.0); MEAN CORPUSCULAR VOLUME 93 fl (80-97); PLATELET COUNT 223 10^3/uL (150-450); RED BLOOD COUNT 4.38 10^6/uL (4.35-5.55); RED CELL DISTRIBUTION WIDTH 13.1 % (11.5-14.0); WHITE BLOOD COUNT 7.6 10^3/uL (4.0-10.5)
[2019-12-01 04:32] LABS: CHOLESTEROL 179.54 mg/dL (0-200); CREATINE KINASE 46 U/L (55-170); TRIGLYCERIDES 206 mg/dL (<150)
[2019-12-01 04:40] LABS: CREATINE KINASE MB 0.37 ng/mL (<4.55); TROPONIN I 0.074 ng/mL
[2019-12-01 04:42] LABS: DIRECT LDL 113 mg/dL (<100)
[2019-12-01 04:45] LABS: VLDL CHOLESTEROL 41.2 mg/dL (10-31)
--- NOTE | 2019-12-01 07:42 | EKG REPORT ---
SEVERITY:- NORMAL ECG - SINUS RHYTHM : Confirmed by: Sebastian Claire MD 01-Dec-2019 07:41:22
[2019-12-01] MEDS: ASPIRIN 81 MG TABLET, ENT COATED PO SCH (09:27)
[2019-12-01] MEDS: CLOPIDOGREL BISULFATE 75 MG TABLET PO SCH (09:27)
[2019-12-01 09:55] LABS: ALBUMIN 4.2 g/dL (3.5-5.0); ALKALINE PHOSPHATASE 65 U/L (38-126); ANION GAP 5 (5-19); ASPARTATE AMINO TRANSFERASE 20 U/L (17-59); BILIRUBIN,DIRECT 0.4 mg/dL (0.0-0.4); BILIRUBIN,TOTAL 0.5 mg/dL (0.2-1.3); BLOOD UREA NITROGEN 9 mg/dL (7-20); CALCIUM 9.2 mg/dL (8.4-10.2); CARBON DIOXIDE 26 mmol/L (22-30); CHLORIDE 103 mmol/L (98-107); CREATINE KINASE 49 U/L (55-170); GLUCOSE 95 mg/dL (75-110); POTASSIUM 4.9 mmol/L (3.6-5.0); TOTAL PROTEIN 6.9 g/dL (6.3-8.2)
[2019-12-01 10:03] LABS: CREATINE KINASE MB 0.39 ng/mL (<4.55); TROPONIN I 0.056 ng/mL
--- NOTE | 2019-12-01 10:45 | PDOC CONSULTATION ---
Consultation Consult Date: 12/01/19 Attending physician:: ANGEL ARIAS Provider Consulted: JONAS ZENG Consult reason:: CP History of Present Illness Admission Date/PCP: 11/30/19 22:07 History of Present Illness: JENNIFER QUINONES is a 44 year old male with history of COPD, tobacco use since age 9 years old, sedentary lifestyle, significant family history of premature coronary artery disease in his father who of a massive CT at age 46 years and a brother who had PCI in his 30s and family history of brain aneurysm who is consulted to our service for evaluation of atypical chest pain. The patient was in his usual state of health until yesterday when he initially developed a headache that eventually radiated to his left chest. The pain was very sharp and stabbing in nature, essentially localized "to my left lung", it was made worse with deep inspiration, it was constant in nature and lasting almost 24 hours without any relief and not associated with diaphoresis, shortness of breath, palpitations, syncope or presyncope. In the emergency room he was a dministered Toradol with resolution of his index symptoms. His EKG did not demonstrate any ischemic changes and his troponin had been detectable but nondiagnostic and downtrending. Physical exam on 12/01/2019: GENERAL: Pleasant and conversational. Oriented x3 with normal mood. Not in acute distress. Well groomed and well developed. HEENT: Normocephalic, atraumatic. Pupils equal. Sclerae anicteric. Oropharynx moist. NECK: No JVD. No carotid bruits. LUNGS: Clear to auscultation bilaterally. Normal respiratory effort without the use of accessory muscles or intercostal retractions. CARDIOVASCULAR: Regular rate and rhythm, normal S1 and S2 without murmurs, rubs, or gallops. PMI not displaced. ABDOMEN: No masses or tenderness to palpation. No bruit. No splenomegaly or hepatomegaly. No abdominal aorta bruit noted. EXTREMITIES: No edema, no cyanosis, no clubbing. +2 pulses femoral and pedal pulses bilaterally. SKIN: No lesions or rashes. MUSCULOSKELETAL: No chest tenderness to palpation. NEUROLOGIC: Nonfocal. No gross sensory or motor deficits bilateral upper or lower extremities. Past Medical History Cardiac Medical History: Denies: Atrial Fibrillation, Coronary Artery Disease, DVT, Myocardial Infarction, Hyperlipidema, Hypertension, Pulmonary Embolism Pulmonary Medical History: Reports: Chronic Obstructive Pulmonary Disease (COPD) Denies: Asthma EENT Medical History: Denies: Cataracts, Ears - Hearing aids Neurological Medical History: Reports: Other - "Nervous disorder"-Tic? Denies: Hemorrhagic CVA, Ischemic CVA, Seizures Endocrine Medical History: Denies: Diabetes Mellitus Type 1, Hyperthyroidism, Hypothyroidism, Obesity Renal/ Medical History: Denies: Chronic Kidney Disease, Nephrolithiasis Malignancy Medical History: Reports: None GI Medical History: Denies: Cirrhosis, Crohn's Disease, Hepatitis, Peptic Ulcer Disease, Ulcerative Colitis Musculoskeltal Medical History: Denies: Arthritis, Gout Skin Medical History: Denies: Eczema, Psoriasis Psychiatric Medical History: Reports: Depression, Post Traumatic Stress Disorder, Tobacco Dependency Denies: Alcohol Dependency, Substance Abuse Traumatic Medical History: Reports: None Hematology: Denies: Anemia, Bleeding Tendencies Infectious Medical History: Reports: None Past Surgical History Past Surgical History: Reports: None, Other - Dental surgeries Social History Lives with: Spouse/Significant other Smoking Status: Current Every Day Smoker Cigarettes Packs Per Day: 2 Electronic Cigarette use?: No Frequency of Alcohol Use: Social - Approximately 6 beers per day Hx Recreational Drug Use: No Drugs: None Hx Prescription Drug Abuse: No - Advance Directive Resuscitation Status: Full Code Family History Family History: CAD, CVA, Hypertension, Malignancy, Other - Aneurysms, ALS Parental Family History Reviewed: Yes Children Family History Reviewed: Yes Sibling(s) Family History Reviewed.: Yes Medication/Allergy Home Medications: Buspirone HCl [Buspar 10 mg Tablet] 10 mg PO BID #10 tab 04/20/17 Disulfiram [Antabuse 250 mg Tablet] 250 mg PO DAILY 04/20/17 Fluoxetine HCl [Prozac] 20 mg PO DAILY 04/20/17 Prazosin HCl 2 mg PO DAILY 04/20/17 Trazodone HCl 50 mg PO DAILY 04/20/17 Venlafaxine HCl [Effexor] 37.5 mg PO BID #10 tablet 04/20/17 Methocarbamol [Robaxin 500 mg Tablet] 500 mg PO QID PRN #15 tablet 09/14/19 Naproxen 500 mg PO BID #10 tablet 09/14/19 Allergies/Adverse Reactions: No Known Allergies Allergy (Verified 11/30/19 17:49) Physical Exam Vital Signs: Temp Pulse Resp BP Pulse Ox 97.5 F 70 16 110/69 98 12/01/19 02:14 12/01/19 09:21 12/01/19 09:21 12/01/19 02:14 12/01/19 09:21 Intake & Output 11/30/19 12/01/19 12/02/19 06:59 06:59 06:59 Weight 82 kg Results Laboratory Results: 12/01/19 03:14 11/30/19 11/30/19 11/30/19 18:27 18:35 18:35 WBC 8.0 RBC 4.85 Hgb 15.9 Hct 44.9 MCV 93 MCH 32.8 MCHC 35.4 RDW 12.9 Plt Count 273 Seg Neutrophils % 52.0 Sodium 134.7 L Potassium 4.3 Chloride 99 Carbon Dioxide 27 Anion Gap 9 BUN 8 Creatinine 1.08 Est GFR ( Amer) > 60 Glucose 88 Calcium 9.4 Magnesium Total Bilirubin 0.5 AST 21 Alkaline Phosphatase 85 Total Protein 7.8 Albumin 4.8 Triglycerides Cholesterol LDL Cholesterol Direct VLDL Cholesterol HDL Cholesterol TSH Urine Color STRAW Urine Appearance CLEAR Urine pH 7.0 Ur Specific [place] 1.003 Urine Protein NEGATIVE Urine Glucose (UA) NEGATIVE Urine Ketones NEGATIVE Urine Blood NEGATIVE Urine Nitrite NEGATIVE Ur Leukocyte Esterase NEGATIVE Urine WBC (Auto) 1 12/01/19 12/01/19 12/01/19 03:14 03:14 03:14 WBC 7.6 RBC 4.38 Hgb 14.6 Hct 40.7 MCV 93 MCH 33.3 MCHC 35.9 RDW 13.1 Plt Count 223 Seg Neutrophils % Sodium Potassium Chloride Carbon Dioxide Anion Gap BUN Creatinine Est GFR ( Amer) Glucose Calcium Magnesium 2.3 Total Bilirubin AST Alkaline Phosphatase Total Protein Albumin Triglycerides 206 H Cholesterol 179.54 LDL Cholesterol Direct 113 H VLDL Cholesterol 41.2 H HDL Cholesterol 44 TSH 1.59 Urine Color Urine Appearance Urine pH Ur Specific [place] Urine Protein Urine Glucose (UA) Urine Ketones Urine Blood Urine Nitrite Ur Leukocyte Esterase Urine WBC (Auto) 11/30/19 11/30/19 11/30/19 18:35 18:35 18:35 Creatine Kinase 56 CK-MB (CK-2) 0.67 Troponin I 0.066 Cancelled NT-Pro-B Natriuret Pep 11/30/19 12/01/19 12/01/19 20:43 03:14 03:14 Creatine Kinase 46 L CK-MB (CK-2) 0.37 Troponin I 0.069 0.074 NT-Pro-B Natriuret Pep 29 Impressions: Chest X-Ray 11/30/19 18:02 IMPRESSION: NO ACUTE RADIOGRAPHIC FINDING IN THE CHEST. Head CT 11/30/19 18:03 IMPRESSION: NO ACUTE INTRACRANIAL IMAGING FINDINGS. EVIDENCE OF ACUTE STROKE: NO. Chest/Abdomen CTA 11/30/19 19:46 IMPRESSION: 1. No pulmonary embolism. 2. COPD with mild paraseptal and centrilobular emphysema. 3. No acute process in the chest. No pneumonia or edema. No pulmonary nodules or masses. Assessment & Plan - Diagnosis (1) Chest pain Qualifiers: Chest pain type: chest pain on breathing Qualified Code(s): R07.1 - Chest pain on breathing; R07.81 - Pleurodynia Is this a current diagnosis for this admission?: Yes Plan: Very atypical chest pain with detectable but nondiagnostic cardiac troponins. His chest pain is not ischemic in nature however given his significant coronary artery disease risk factors to include his impressive family history of premature coronary artery disease we will plan to get an outpatient exercise stress test for further risk stratification. I will arrange for this. The patient may be discharged home from the cardiovascular standpoint. (2) Tobacco use disorder, continuous Is this a current diagnosis for this admission?: Yes Plan: The ill effects of tobacco use were discussed with patient at length and he was counseled to quit smoking as soon as possible. He verbalized understanding. (3) Family history of brain aneurysm Is this a current diagnosis for this admission?: Yes Plan: The patient will be screened for brain aneurysms prior to discharge given his strong family history for this issue.
--- NOTE | 2019-12-01 14:03 | XCELERA REPORT ---
[address] [address] Transthoracic Echocardiogram Report Name: JENNIFER QUINONES Age: 44 yrs Gender: Male : 1975 Patient Status: Inpatient Patient Location: [address] [place] [address] Study Date: 12/01/2019 08:52 AM Height: 74 in Weight: 195 lb BSA: 2.1 m2 Procedure: A complete two-dimensional transthoracic echocardiogram was performed (2D, M-mode, spectral and color flow Doppler). Study Quality: Technically suboptimal. Reason For Study: LV Function, size, wall thickness,Valve Function Ordering Physician: ANGEL ARIAS Performed By: Dominique Sosa Interpretation Summary Suboptimal study. The left ventricle is grossly normal size. Left ventricular systolic function is normal. The Ejection Fraction estimate is 55-60%. Doppler measurements suggest normal left ventricular diastolic function. The left ventricular wall motion is normal. There is no thrombus. The aortic valve was not well visualized. Trace TR. No prior studies for comparison. MMode/2D Measurements & Calculations RVDd: 1.9 cm LVIDd: 5.1 cm FS: 24.4 % Ao root diam: 3.0 cm IVSd: 0.96 cm LVIDs: 3.9 cm EDV(Teich): 124.2 ml Ao root area: 6.9 cm2 LVPWd: 0.68 cm ESV(Teich): 64.2 ml LA dimension: 2.3 cm EF(Teich): 48.3 % Doppler Measurements & Calculations MV E max zoey: MV P1/2t max zoey: Ao V2 max: LV V1 max P.4 cm/sec 54.9 cm/sec 96.1 cm/sec 2.4 mmHg MV A max zoey: MV P1/2t: 51.2 msec Ao max P.7 mmHg LV V1 max: 45.7 cm/sec MVA(P1/2t): 4.3 cm2 78.0 cm/sec MV E/A: 1.1 MV dec slope: 314.1 cm/sec2 MV dec time: 0.21 sec PA V2 max: TR max zoey: MV P1/2t-pr_phl: 46.9 cm/sec 179.8 cm/sec 51.2 msec PA max PG: TR max P.9 mmHg 0.88 mmHg Left Ventricle The left ventricle is grossly normal size. Left ventricular systolic function is normal. The Ejection Fraction estimate is 55-60%. Doppler measurements suggest normal left ventricular diastolic function. The left ventricular wall motion is normal. There is no thrombus. Right Ventricle The right ventricle is grossly normal size. The right ventricular systolic function is normal. Atria The right atrium is normal. The left atrial size is normal. The interatrial septum is difficult to see, but appears to be grossly normal. Mitral Valve The mitral valve is normal in structure and function. There is no mitral valve stenosis. There is no mitral regurgitation noted. Aortic Valve The aortic valve is not well visualized secondary to technical limitations. There is no aortic valve stenosis. No aortic regurgitation is present. Tricuspid Valve The tricuspid is normal in structure and function. There is a trace or physiologic amount of tricuspid regurgitation. Pulmonic Valve The pulmonic valve is not well visualized. Great Vessels The inferior vena cava appeared normal. : ANGEL ARIAS Antonio
[2019-12-01 15:46] LABS: CREATINE KINASE MB 0.38 ng/mL (<4.55); TROPONIN I 0.054 ng/mL
--- NOTE | 2019-12-01 17:57 | RADIOLOGY REPORT (SQ) ---
EXAM DESCRIPTION: CTA HEAD IMAGES COMPLETED DATE/TIME: 12/01/2019 3:56 pm REASON FOR STUDY: Chest Pain, Hx family brain aneurysm. COMPARISON: 11/30/2019 TECHNIQUE: Post IV contrast scanning, thin section axial imaging through the brain to evaluate the a rterial structures. Source and MIP images are saved and reviewed on PACS. Advanced 3D imaging as volume-rendering, MIPs, SSD performed? yes All CT scanners at this facility use dose modulation, iterative reconstruction, and/or weight based d osing when appropriate to reduce radiation dose to as low as reasonably achievable (ALARA). [facility]: Dose Right [facility]: CareDose [facility]: Dose Right [facility]: Teradose 4D [facility]: Tjobs Recruit CONTRAST TYPE AND DOSE: contrast/concentration: Isovue 350.00 mmol/ml; Total Contrast Delivered: 75. 0 ml; Total Saline Delivered: 55.0 ml RENAL FUNCTION: BUN 9 creatinine 1 LIMITATIONS: None. FINDINGS: [place]: The anterior, middle, posterior cerebral arteries are all patent. No ev idence of aneurysm or focal stenosis. POSTERIOR CIRCULATION: The distal vertebral arteries are patent as is the basilar artery. No aneurysm . BRAIN: No gross enhancing lesions as visualized. The superior cerebral hemispheres are not included in the field of view. BONES: Intact as visualized. SINUSES: No fluid or mucosal thickening. OTHER: No other significant finding. IMPRESSION: NO CTA EVIDENCE OF STENOSIS OR ANEURYSM OF THE [place]. TECHNICAL DOCUMENTATION: JOB ID: [id number] Quality ID # [id number]: Final reports with documentation of one or more dose reduction techniques (e.g., Au tomated exposure control, adjustment of the mA and/or kV according to patient size, use of iterative reconstruction technique) 2010 [employer]- All Rights Reserved Reading location - IP/workstation name: [email or web address]
[2019-12-02] MEDS: KETOROLAC TROMETHAMINE INJ/PF 30 MG/1 ML SDV IV SCH ×2 (03:11→09:41)
[2019-12-02 05:26] LABS: APPEARANCE,URINE CLEAR; BILIRUBIN,URINE NEGATIVE (NEGATIVE); COLOR,URINE STRAW; GLUCOSE, URINE NEGATIVE (NEGATIVE); KETONES,URINE NEGATIVE (NEGATIVE); LEUKOCYTE ESTERASE,URINE NEGATIVE (NEGATIVE); NITRITE,URINE NEGATIVE (NEGATIVE); PROTEIN,URINE NEGATIVE (NEGATIVE); URINE SPECIFIC GRAVITY 1.009; UROBILINOGEN,URINE NEGATIVE mg/dL (<2.0)
[2019-12-02 05:29] LABS: ADD MANUAL MICROSCOPIC YES
[2019-12-02 05:42] LABS: RBC,URINE 0-1 /HPF; WBC,URINE 0-1 /HPF
[2019-12-02 08:23] VITALS: BP 117/75
[2019-12-02] MEDS: CLOPIDOGREL BISULFATE 75 MG TABLET PO SCH (09:42)
[2019-12-02] MEDS: ASPIRIN 81 MG TABLET, ENT COATED PO SCH (09:42)
[2019-12-02] MEDS: NICOTINE 21 MG/24 HR PATCH.TD24 TD PRN (09:42)
[2019-12-02] MEDS: FAMOTIDINE 20 MG TABLET PO SCH (09:42)
--- NOTE | 2019-12-02 19:32 | PDOC DISCHARGE SUMMARY ---
Impression - Admit/DC Date/PCP Admission Date/Primary Care Provider: 11/30/19 22:07 Discharge Date: 12/02/19 - Assessment Summary: JENNIFER QUINONES is a 44 year old male 2 PPD current smoker with a sedentary lifestyle, high salt/fat diet, and significant family history of premature coronary artery disease in his father who of a massive RI at age 46 years and a brother who had PCI in his 30s who presented with atypical chest pain. The left sided chest pain was very sharp and stabbing in nature, essentially localized "to my left lung", it was made worse with deep inspiration, it was constant in nature and lasting almost 24 hours without any relief and not associated with diaphoresis, shortness of breath, palpitations, syncope or presyncope. His EKG did not demonstrate any ischemic changes and his troponin had been detectable but nondiagnostic and downtrending. Cardiology was consulted and felt that, although chest pain is not ischemic in nature, given his significant coronary artery disease risk factors to include his impressive family history of premature coronary artery disease, he should be started on daily baby ASA, statin and get an outpatient exercise stress test for further risk stratification. He was advised to follow up with cardiology. He received smoking cessation counseling and was offered nicotine patches, which he declined. He received diet/exercise counseling. He was advised to follow up within 1 week with PCP, cardiology. - Additional Information Resuscitation Status: Full Code Discharge Diet: Cardiac, Other (Comments) - low fat, low salt Discharge Activity: Activity As Tolerated, Walk Frequently Prescriptions: Rosuvastatin Calcium [Crestor] 10 mg PO QHS 30 Days #30 tablet Aspirin [Ecotrin 81 mg EC Tablet] 81 mg PO DAILY 30 Days #30 tabec Nitroglycerin [Nitrostat 0.4 mg (1/150 Gr) Tabs 25/Bottle] 1 tab SL Q5MP PRN #30 bottle PRN Reason: For Chest Pain Home Medications: Buspirone HCl [Buspar 10 mg Tablet] 10 mg PO BID #10 tab 04/20/17 Disulfiram [Antabuse 250 mg Tablet] 250 mg PO DAILY 04/20/17 Fluoxetine HCl [Prozac] 20 mg PO DAILY 04/20/17 Prazosin HCl 2 mg PO DAILY 04/20/17 Trazodone HCl 50 mg PO DAILY 04/20/17 Venlafaxine HCl [Effexor] 37.5 mg PO BID #10 tablet 04/20/17 Methocarbamol [Robaxin 500 mg Tablet] 500 mg PO QID PRN #15 tablet 09/14/19 Aspirin [Ecotrin 81 mg EC Tablet] 81 mg PO DAILY 30 Days #30 tabec 12/01/19 Rosuvastatin Calcium [Crestor] 10 mg PO QHS 30 Days #30 tablet 12/01/19 Nitroglycerin [Nitrostat 0.4 mg (1/150 Gr) Tabs 25/Bottle] 1 tab SL Q5MP PRN #30 bottle 12/02/19 History of Present Illiness History of Present Illness: JENNIFER QUINONES is a 44 year old male Physical Exam Vital Signs: Temp Pulse Resp BP Pulse Ox 97.6 F 69 15 117/75 100 12/02/19 04:02 12/02/19 07:45 12/02/19 07:45 12/02/19 07:43 12/02/19 07:45 Intake & Output 12/01/19 12/02/19 12/03/19 06:59 06:59 06:59 Output Total 300 Balance -300 Weight 82 kg 82.3 kg Results Laboratory Results: WBC 7.6 10^3/uL (4.0-10.5) 12/01/19 03:14 RBC 4.38 10^6/uL (4.35-5.55) 12/01/19 03:14 Hgb 14.6 g/dL (13.5-17.0) 12/01/19 03:14 Hct 40.7 % (37.9-51.0) 12/01/19 03:14 MCV 93 fl (80-97) 12/01/19 03:14 MCH 33.3 pg (27.0-33.4) 12/01/19 03:14 MCHC 35.9 g/dL (32.0-36.0) 12/01/19 03:14 RDW 13.1 % (11.5-14.0) 12/01/19 03:14 Plt Count 223 10^3/uL (150-450) 12/01/19 03:14 Lymph % (Auto) 38.0 % (13-45) 11/30/19 18:35 [place] % (Auto) 5.1 % (3-13) 11/30/19 18:35 Eos % (Auto) 3.7 % (0-6) 11/30/19 18:35 Baso % (Auto) 1.2 % (0-2) 11/30/19 18:35 Absolute Neuts (auto) 4.1 10^3/uL (1.7-8.2) 11/30/19 18:35 Absolute Lymphs (auto) 3.0 10^3/uL (0.5-4.7) 11/30/19 18:35 Absolute Monos (auto) 0.4 10^3/uL (0.1-1.4) 11/30/19 18:35 Absolute Eos (auto) 0.3 10^3/uL (0.0-0.6) 11/30/19 18:35 Absolute Basos (auto) 0.1 10^3/uL (0.0-0.2) 11/30/19 18:35 Seg Neutrophils % 52.0 % (42-78) 11/30/19 18:35 PT 12.0 SEC (11.4-15.4) 11/30/19 18:35 INR 0.87 11/30/19 18:35 Sodium 134.2 mmol/L (137-145) L 12/01/19 08:49 Potassium 4.9 mmol/L (3.6-5.0) 12/01/19 08:49 Chloride 103 mmol/L (98-107) 12/01/19 08:49 Carbon Dioxide 26 mmol/L (22-30) 12/01/19 08:49 Anion Gap 5 (5-19) 12/01/19 08:49 BUN 9 mg/dL (7-20) 12/01/19 08:49 Creatinine 0.99 mg/dL (0.52-1.25) 12/01/19 08:49 Est GFR ( Amer) > 60 (>60) 12/01/19 08:49 Est GFR (MDRD) Non-Af > 60 (>60) 12/01/19 08:49 Glucose 95 mg/dL (75-110) 12/01/19 08:49 Hemoglobin A1c % 5.1 % (4.7-6.0) 12/01/19 03:14 Calcium 9.2 mg/dL (8.4-10.2) 12/01/19 08:49 Magnesium 1.9 mg/dL (1.6-2.3) 12/02/19 07:00 Total Bilirubin 0.5 mg/dL (0.2-1.3) 12/01/19 08:49 Direct Bilirubin 0.4 mg/dL (0.0-0.4) 12/01/19 08:49 Neonat Total Bilirubin Not Reportable 12/01/19 08:49 Neonat Direct Bilirubin Not Reportable 12/01/19 08:49 Neonat Indirect Bili Not Reportable 12/01/19 08:49 AST 20 U/L (17-59) 12/01/19 08:49 ALT 15 U/L (<50) 12/01/19 08:49 Alkaline Phosphatase 65 U/L (38-126) 12/01/19 08:49 Creatine Kinase 45 U/L (55-170) L 12/01/19 15:04 CK-MB (CK-2) 0.38 ng/mL (<4.55) 12/01/19 15:04 Troponin I 0.054 ng/mL 12/01/19 15:04 NT-Pro-B Natriuret Pep 29 pg/mL (<125) 11/30/19 20:43 Total Protein 6.9 g/dL (6.3-8.2) 12/01/19 08:49 Albumin 4.2 g/dL (3.5-5.0) 12/01/19 08:49 Triglycerides 206 mg/dL (<150) H 12/01/19 03:14 Cholesterol 179.54 mg/dL (0-200) 12/01/19 03:14 LDL Cholesterol Direct 113 mg/dL (<100) H 12/01/19 03:14 VLDL Cholesterol 41.2 mg/dL (10-31) H 12/01/19 03:14 HDL Cholesterol 44 mg/dL (>40) 12/01/19 03:14 TSH 1.59 uIU/mL (0.47-4.68) 12/01/19 03:14 Urine Color STRAW 12/02/19 04:15 Urine Appearance CLEAR 12/02/19 04:15 Urine pH 7.0 (5.0-9.0) 12/02/19 04:15 Ur Specific [place] 1.009 12/02/19 04:15 Urine Protein NEGATIVE mg/dL (NEGATIVE) 12/02/19 04:15 Urine Glucose (UA) NEGATIVE mg/dL (NEGATIVE) 12/02/19 04:15 Urine Ketones NEGATIVE mg/dL (NEGATIVE) 12/02/19 04:15 Urine Blood NEGATIVE (NEGATIVE) 12/02/19 04:15 Urine Nitrite NEGATIVE (NEGATIVE) 12/02/19 04:15 Urine Bilirubin NEGATIVE (NEGATIVE) 12/02/19 04:15 Urine Urobilinogen NEGATIVE mg/dL (<2.0) 12/02/19 04:15 Ur Leukocyte Esterase NEGATIVE (NEGATIVE) 12/02/19 04:15 Urine WBC (Auto) 1 /HPF 11/30/19 18:27 Urine RBC 0-1 /HPF 12/02/19 04:15 Urine WBC 0-1 /HPF 12/02/19 04:15 Urine Mucus (Auto) RARE /LPF 11/30/19 18:27 Urine Ascorbic Acid NEGATIVE (NEGATIVE) 12/02/19 04:15 Urine Opiates Screen NEGATIVE 11/30/19 18:27 Urine Methadone Screen NEGATIVE 11/30/19 18:27 Ur Barbiturates Screen NEGATIVE 11/30/19 18:27 Ur Phencyclidine Scrn NEGATIVE 11/30/19 18:27 Ur Amphetamines Screen NEGATIVE 11/30/19 18:27 U Benzodiazepines Scrn NEGATIVE 11/30/19 18:27 Urine Cocaine Screen NEGATIVE 11/30/19 18:27 U Marijuana (THC) Screen NEGATIVE 11/30/19 18:27 11/30/19 11/30/19 11/30/19 18:35 18:35 20:43 CK-MB (CK-2) 0.67 Troponin I 0.066 Cancelled 0.069 NT-Pro-B Natriuret Pep 29 12/01/19 12/01/19 12/01/19 03:14 08:49 15:04 CK-MB (CK-2) 0.37 0.39 0.38 Troponin I 0.074 0.056 0.054 NT-Pro-B Natriuret Pep Impressions: Chest X-Ray 11/30/19 18:02 IMPRESSION: NO ACUTE RADIOGRAPHIC FINDING IN THE CHEST. Head CT 11/30/19 18:03 IMPRESSION: NO ACUTE INTRACRANIAL IMAGING FINDINGS. EVIDENCE OF ACUTE STROKE: NO. Chest/Abdomen CTA 11/30/19 19:46 IMPRESSION: 1. No pulmonary embolism. 2. COPD with mild paraseptal and centrilobular emphysema. 3. No acute process in the chest. No pneumonia or edema. No pulmonary nodules or masses. Head CTA 12/01/19 00:00 IMPRESSION: NO CTA EVIDENCE OF STENOSIS OR ANEURYSM OF THE [place] RESERVATION OF [place]. Stroke Is this a Stroke Patient?: No Acute Heart Failure - Is this a Heart Failure Patient?: No
== END 2019-12-02 13:40 | disposition home or self-care (01) | DRG 313 ==
LOC: ER 16:55 → EH 22:07 → 5 12-01 01:28
PROVIDERS: ADMIT Emergency Medicine; ATTEND Hospitalist
DX: R07.89 Other chest pain (principal); F17.210 Nicotine dependence, cigarettes, uncomplicated; J44.9 Chronic obstructive pulmonary disease, unspecified; R79.89 Other specified abnormal findings of blood chemistry; F43.10 Post-traumatic stress disorder, unspecified; Z79.82 Long term (current) use of aspirin; Z82.49 Family history of ischemic heart disease and other diseases of the circulatory system; Z82.3 Family history of stroke
CPT/HCPCS: 36415; 70450; 70496; 71046; 71275; 80053; 80061; 80307; 81001; 82550; 82553; 83036; 83735; 83880; 84443; 84484; 85025; 85027; 85610; 87070; 93005; 93010; 93306; 99285; J1650; J1885